=== PATIENT | male | born 1975 | race Caucasian/White ===

== ENCOUNTER → 2017-11-16 | Outpatient (CLI) | payer OTHER | LOC: SLEEPLAB 19:30 | PROVIDERS: ATTEND Family Medicine | DX: G47.33 Obstructive sleep apnea (adult) (pediatric) (principal); G47.9 Sleep disorder, unspecified; R53.83 Other fatigue; R06.83 Snoring; G47.00 Insomnia, unspecified; G47.10 Hypersomnia, unspecified; G47.31 Primary central sleep apnea; Z68.27 Body mass index [BMI] 27.0-27.9, adult | CPT/HCPCS: 95811 ==

== ENCOUNTER 2019-04-20 13:28 | Outpatient (CLI) | payer OTHER ==
--- NOTE | 2019-04-20 14:24 | ULT ---
Bilateral renal ultrasound CLINICAL INDICATION: Renal failure. COMPARISON: None. FINDINGS: Right kidney: There is no evidence of a renal mass, renal calculus, or hydronephrosis seen. The right kidney measures 13.1 cm x 5.8 cm. Left kidney: There is no evidence of a renal mass, renal calculus, or hydronephrosis. The left kidney measures 4.4 cm x 6.1 cm. Urinary bladder: Incompletely distended but otherwise grossly normal in appearance. Urinary bladder v olume is 100.7 mL. IMPRESSION: Normal appearing bilateral kidneys without evidence of hydronephrosis.
== END 2019-04-20 13:29 | disposition home or self-care (01) ==
LOC: BICULT 13:28
PROVIDERS: ATTEND Internal Medicine Nephrology
DX: N17.9 Acute kidney failure, unspecified (principal)
CPT/HCPCS: 76770